=== PATIENT | female | born 1990 | race Caucasian/White ===

== ENCOUNTER 2017-12-11 23:30 | Emergency (ER) | END 2017-12-12 05:20 | disposition home or self-care (01) ==

== ENCOUNTER 2018-11-15 13:32 | Outpatient (CLI) | payer MEDICAID ==
[~2018-11-15] VITALS: Ht 161.3 cm; Wt 75.4 kg
[~2018-11-15 13:32] MED LIST: POLY17PO6 PO; SENN-36 PO
[2018-11-15 13:36] VITALS: Ht 161.3 cm; Wt 75.4 kg
[2018-11-15 13:37] VITALS: BP 109/69; PULSE 90; RESP 20
--- NOTE | 2018-11-15 15:44 | PN ---
Triage Information Date/Time Reason for visit: NST BPP for GDM Weeks of Gestation 38+ /Para 2/1 Diabetes: gestational Diabetes management: diet controlled Hypertention: none Objective Vital Signs Date Temp Pulse Resp B/P (MAP) Pulse Ox O2 O2 Flow FiO2 Time Delivery Rate 11/15/18 98.4 90 20 109/69 Room Air 13:37 (82) Heart Rate: 140's Contractions: None Disposition: Discharge Assessment/Plan BPP 08/18 Precautions discussed Questions answered Follow up with provider MANNIE MEDINA M.D. Nov 15, 2018 15:44
--- NOTE | 2018-11-15 16:12 | TRIAGE ---
OB Triage Datetime Report Generated by CPN: 11/15/2018 16:12 Datetime: 11/15/2018 14:00 Heart Rate FHR Baseline Rate: 135 Variability: Moderate 6-25 bpm Accelerations: 15X15 Decelerations: None Category: Category I Comments: reactive nst Datetime: 11/15/2018 13:51 Assessment Type: Triage Maternal Assessment Level of Consciousness: Fully Conscious DTR's/Clonus: DTRs 2+; No Clonus Headache: Denies Blurred Vision: No Respiratory Effort: Unlabored; Regular Rhythm; Equal Expansion Breath Sounds, Left: Clear and Equal Breath Sounds, Right: Clear and Equal Nausea/Vomiting: Denies RUQ Epigastric Pain: Denies Lower Extremities Edema: None Degree: None Upper Extremities Edema: None Degree: None Facial Edema: None Fall Risk Assessment History of Falling: (0) No Secondary Diagnosis: (0) No Ambulatory Aid: (0) Bedrest/Nurse Assist IV Therapy: (0) No Gait: (0) Normal/Bedrest/Immobile Mental Status: (0) Oriented to Own Ability Fall Score: 0 Fall Risk Score Definition: No Risk: No action required Datetime: 11/15/2018 13:49 Time of Arrival: 11/15/2018 13:14 EGA: 38.6 Arrived By: Ambulatory Arrived From: Office Chief Complaint: To ob triage from md office with referral form for nst, bpp, efm due to gdm Movement: Present Contractions: Denies/Absent Rupture of Membranes: Denies Vaginal Bleeding: None Vaginal Discharge: Denies Recent Sexual Intercouse: Denies Abdominal Trauma: Not Applicable Patient Complaints: None Time Provider Notified: 11/15/2018 15:37 Provider Notified: Initial Plan: nst, bpp, efw
== END 2018-11-15 16:00 | disposition home or self-care (01) ==
LOC: OBT 13:32 → L-D 13:33 → OBT 16:00
PROVIDERS: ATTEND Obstetrics & Gynecology
DX: O24.419 Gestational diabetes mellitus in pregnancy, unspecified control (principal); Z3A.38 38 weeks gestation of pregnancy
CPT/HCPCS: 76815; 76818; Z7500; G0463

== ENCOUNTER 2018-11-16 20:07 | Inpatient (IN) | payer MEDICAID ==
[~2018-11-16] VITALS: Ht 160 cm; Wt 76.3 kg
[2018-11-16 21:09] VITALS: Ht 160 cm; Wt 76.3 kg
[2018-11-16 21:11] VITALS: BP 112/80; PULSE 96; RESP 16
[2018-11-16] MEDS ORDERED: LACTATED RINGER'S 1,000 ML IV PRN (21:14)
[2018-11-16] MEDS ORDERED: OXYTOCIN 30 UNITS/LR 500 ML IV SCH ×2 (21:30)
[2018-11-16] MEDS ORDERED: LIDOCAINE 1% (MPF) 30 ML INJ INJ PRN (21:30)
[2018-11-16] MEDS ORDERED: BUTORPHANOL 2 MG INJ IV PRN (21:30)
[2018-11-16] MEDS ORDERED: OXYTOCIN 30 UNITS/LR 500 ML IV PRN (21:30)
[2018-11-16] MEDS ORDERED: MISOPROSTOL 200 MCG TAB PR PRN (21:30)
[2018-11-16] MEDS ORDERED: IBUPROFEN 600 MG TAB PO PRN (21:30)
[2018-11-16] MEDS ORDERED: METHYLERGONOVINE 0.2 MG INJ IM PRN (21:30)
[2018-11-16] MEDS ORDERED: CARBOPROST 250 MCG INJ IM PRN (21:30)
[2018-11-16] MEDS ORDERED: DEXTROSE 5%-LR 1,000 ML IV SCH (21:44)
[2018-11-16] MEDS: LACTATED RINGER'S 1,000 ML IV SCH (22:03)
[2018-11-16] MEDS: MISOPROSTOL 50 MCG CAPSULE PO SCH (22:07)
[2018-11-17] MEDS: MISOPROSTOL 50 MCG CAPSULE PO SCH (02:25)
[2018-11-17] MEDS: LACTATED RINGER'S 1,000 ML IV SCH (03:58)
[2018-11-17] MEDS ORDERED: FENTAnyl 2MCG/ML-ROPIV 0.2% 0 ML ONE (08:57)
[2018-11-17] MEDS ORDERED: MISOPROSTOL 200 MCG TAB ONE (09:14)
[2018-11-17 11:35] VITALS: BP 140/86; PULSE 63; RESP 17
[2018-11-17] MEDS ORDERED: DEXTROSE 5%-LR 1,000 ML IV SCH (12:44)
[2018-11-17] MEDS ORDERED: LACTATED RINGER'S 1,000 ML IV* SCH (12:44)
[2018-11-17] MEDS ORDERED: MAGNESIUM HYDROXIDE 30ML CUP PO PRN (13:00)
[2018-11-17] MEDS ORDERED: ACETAMINOPHEN 325 MG TAB PO PRN ×2 (13:00→13:30)
[2018-11-17] MEDS ORDERED: CARBOPROST 250 MCG INJ IM PRN (13:00)
[2018-11-17] MEDS ORDERED: DIPHENHYDRAMINE 50 MG INJ IV PRN (13:00)
[2018-11-17] MEDS ORDERED: MISOPROSTOL 200 MCG TAB PR PRN (13:00)
[2018-11-17] MEDS ORDERED: ZOLPIDEM 5 MG TAB PO PRN (13:00)
[2018-11-17] MEDS ORDERED: OXYCODONE/ASPIRIN (4.88/325) TAB PO PRN (13:00)
[2018-11-17] MEDS ORDERED: SENNA/DOCUSATE NA (8.6MG/50MG) TAB PO PRN (13:00)
[2018-11-17] MEDS ORDERED: ONDANSETRON 4 MG INJ IV PRN (13:00)
[2018-11-17] MEDS ORDERED: OXYTOCIN 30 UNITS/LR 500 ML IV PRN (13:00)
[2018-11-17] MEDS ORDERED: DIBUCAINE 1% 30 GM OINT TOP PRN (13:00)
[2018-11-17] MEDS ORDERED: LANOLIN HPA 1 PKT TOP PRN (13:00)
[2018-11-17] MEDS ORDERED: METHYLERGONOVINE 0.2 MG INJ IM PRN (13:00)
[2018-11-17] MEDS: BENZOCAINE 20% 56 ML SPRAY TOP PRN (14:39)
[2018-11-17] MEDS: WITCH HAZEL/GLYCERIN PAD PR PRN (14:39)
[2018-11-17 16:30] VITALS: BP 128/66; PULSE 71; RESP 17
[2018-11-17] MEDS: IBUPROFEN 600 MG TAB PO SCH ×2 (18:11→23:35)
--- NOTE | 2018-11-17 18:41 | HP ---
Date/Time of Note Date/Time of Note DATE: 11/17/18 TIME: 18:40 OB - History Hx of Present Free Text/Dictation Late entry note. Patient seen at 8:30 this morning 28 years old 2 para 1001 with gestational diabetes A1 and single intrauterine at 39-week and 1 day admitted for induction of labor. She states good movement. She denies nausea, vomiting, shortness of breath, chest pain, headache, visual changes, vaginal bleeding or LOF. Chief Complaint: Admission for induction of labor for gestational diabetes A1 Last Menstrual Period: Feb 16, 2018 Estimated Due Date: Nov 23, 2018 : 2 Para: 1 Spontaneous : 0 Therapeutic : 0 Care: Good Care Ultrasounds: Normal mid trimester US Obstetrical Complications: Gestational Diabetes Medical Complications: None Past Family/Social History * Past Medical, Surgical, Family and Obstetric Histories reviewed from chart. Blood Type: AB+ Rubella: immune RPR/VDRL: Negative GBS Status: Negative HBsAG: Negative OB Admission Exam Vital Signs Vital Signs Vital Signs Date Temp Pulse Resp B/P (MAP) Pulse Ox O2 O2 Flow FiO2 Time Delivery Rate 11/17/18 98.3 71 17 128/66 Room Air 16:30 (86) Physical Exam HEENT: WNL Heart: Rhythm Normal Lungs: Clear Abdomen: WNL Extremities: Normal Reflexes: Normal Cervical Dilatation: 1cm Effacement: 75% Station: -2 Membranes: Intact Heart Rate: 140's Accelerations: Accelerations Present Decelerations: No Decelerations Varibility: Moderate Contractions on Admission: >10 Minutes Apart Intensity: Mild Last 72 hourBlood Glucose Bedside Glucose - 72 Hours Test 11/16/18 21:26 11/17/18 02:12 11/17/18 06:19 Bedside Glucose 97 mg/dL (70-220) 87 mg/dL (70-220) 88 mg/dL (70-220) Last 72 hours Lab Results CBC & BMP 11/16/18 21:10 OB Assessment/Plan Other plan: 28 years old 001 at 39 weeks and 1 day admitted for induction of labor for gestational diabetes A1 and noncompliant for checking fasting blood sugar and 2- hour post peritoneal. - FHR: No sign of metabolic acidosis- Category I - Continuous EFM, toco - CBC, blood type and screen - Analgesia options with R/B/A discussed in detail with patient - Epidural per patient request - Please see the orders - AB+/Rubella: Immune - GBS: negative Admission, procedures, expectations, risks and possible complications have been discussed in detail with the patient. Risk of vaginal delivery including but not limited to bleeding, infection, cervical laceration, placental retention, injury to fetus, blood transfusion, blood transfusion related infection, risk of anesthesia, adhesion, cervical laceration, episiotomy/laceration, possible delivery with risk of bleeding, infection, injury to other organs (bowel, bladder, ureter, vessels, nerves), injury to fetus, blood transfusion, blood transfusion related infection, risk of anesthesia, scar and hernia formation, needs for future , removal of uterus or any other indicated surgery discussed with the patient. She expressed understanding and repeats the risks. All of her questions were answered. She signed the informed consent. PHYSICIAN'S VERIFICATION OF INFORMED CONSENT The patient was counseled regarding the procedure, its indications, risks, potential complications and alternatives and any questions were answered. Consent was obtained. PLANNED PROCEDURE/TREATMENT: Vaginal delivery, episiotomy, repair of laceration possible delivery HOWIE ESCALERA Nov 17, 2018 18:41
[2018-11-17 19:45] VITALS: BP 122/76; PULSE 84; RESP 18
--- NOTE | 2018-11-17 23:23 | LDN ---
Date/Time of Note Date/Time of Note DATE: 11/17/18 TIME: 23:19 Delivery Summary 28 years old with gestational diabetes at 39 weeks and 1 day delivered a viable male in cephalic presentation. Nose and mouth suctioned. Rest of body delivered. Baby given to the nurse. Placenta delivered spontaneously and intact after stopping pulsation. Patient tolerated procedure well. Time of delivery 09:08 Weight 3385 g - 7 pound and 7ounces Height 20.5 inches 9 at 1 minutes and 9 at 10 minutes EBL 200 mL Weeks of Gestation 39 weeks and 1 day Placenta Delivered: Spontaneously Meconium: none Anesthesia type: Epidural Estimated blood loss: 250 Sponge & Needle done & correct: Yes All needle counts correct: Yes Any foreign bodies felt in the: No Infant Delivery Information Sex Sex: male Apgars 1 Minute: 9 5 Minute: 9 10 Minute: 10 Suctioning Nose & mouth suctioned at yanna: Yes Umbilical Cord Umbilical cord with: 3 Vessels Cord Blood was obtained: Yes Mother & Baby Disposition Disposition Mom & Baby to Maternity; Good: Yes HOWIE ESCALERA Nov 17, 2018 23:23
[2018-11-18 04:00] VITALS: BP 118/72; PULSE 85; RESP 18
[2018-11-18] MEDS: IBUPROFEN 600 MG TAB PO SCH ×4 (05:34→23:58)
[2018-11-18 08:45] VITALS: BP 107/67; PULSE 88; RESP 17
--- NOTE | 2018-11-18 14:08 | PN ---
Date/Time of Note Date/Time of Note DATE: 11/18/18 TIME: 14:06 OB Subjective Subjective Subjective Reports decreased vaginal bleeding. Breast-feeding exclusively. Urinated. Denies any complaint. Ambulating. Baby at bedside. OB Objective Objective Objective General appearance: Alert and oriented x4 does not appear to be in any acute distress Abdomen: Soft, fundus palpable and firm and palpable below the umbilicus and nontender Extremities: No calf tenderness, no click no edema breast: No evidence of mastitis or fissure Laboratory Tests 11/18/18 07:19 OB Assessment/Plan Other Assessment: day #1 Status post doing well GDM. A1. Mild anemia Asymptomatic. Routine care Anticipate DC home tomorrow Discussed with the patient about glucose tolerance testing 6 weeks with her OB office after discharge from the hospital Encourage breast-feeding DEANDRE MICHELE MD Nov 18, 2018 14:08
[2018-11-18 16:00] VITALS: BP 110/70; PULSE 80; RESP 17
[2018-11-18 20:15] VITALS: BP 108/70; PULSE 82; RESP 18
--- NOTE | 2018-11-18 23:16 | NSTRPT ---
NST Information Datetime Report Generated by CPN: 11/18/2018 23:16 Datetime: 11/10/2018 13:58 NST Information EGA: 38.1 Time on Monitor: 11/10/2018 14:18 Time off Monitor: 11/10/2018 14:50 NST Duration (Min): 32 Test and Monitor Explained: Monitor Explained; Test Explained; Verbalized Understanding Pulse: 88 Resp: 18 SBP: 111 DBP: 72 Test Evaluation NST Interventions: None Patient States Movement: Present Contraction Frequency: none FHR Baseline : 135 Variability: Moderate 6-25bpm Accelerations: 15X15 Decelerations: None FHR Category: Category I NST Results: Reactive Comments: PT TO U/S rojas 18.6 cm cephalic FBS 82 Electronically Signed By E-Signature: with User ID: [id number] Datetime: 11/05/2018 13:20 NST Information EGA: 37.3 NST Duration (Min): 29 Datetime: 11/03/2018 13:56 NST Information EGA: 37.1 NST Duration (Min): 45 Datetime: 10/28/2018 13:15 NST Information EGA: 36.2 NST Duration (Min): 34 Datetime: 10/25/2018 14:33 NST Information EGA: 35.6 NST Duration (Min): 45
[2018-11-19 04:05] VITALS: BP 97/59; PULSE 71; RESP 18
[2018-11-19] MEDS: IBUPROFEN 600 MG TAB PO SCH ×3 (05:32→17:08)
[2018-11-19 07:50] VITALS: BP 111/74; PULSE 78; RESP 18
[2018-11-19] MEDS ORDERED: DIPHTH/TET/ACEL PERTUSS (ADULT) 0.5 ML VIAL IM* ONE (09:00)
[2018-11-19] MEDS ORDERED: MEASLES,MUMPS,RUBELLA VACCINE INJ SC* ONE (09:00)
[2018-11-19 15:30] VITALS: BP 131/81; PULSE 72; RESP 16
--- NOTE | 2018-11-19 17:18 | DS ---
Date/Time of Note Date/Time of Note DATE: 11/19/18 TIME: 17:17 Obstetrical Discharge Record Final Diagnosis Final Diagnosis: Term delivered Complications Augmentation: No Induction: No Rupture of Membranes: No Condition on Discharge Physical Assessment Last Vitals: vss afebrile Voiding: Yes Bowel Movement: Yes Breast: Soft, non-tender Fundus: Firm Abdomen and Incision: n/a Episiotomy: n/a Calf Tenderness: No Patient Condition: Stable LAINE CASTILLO MD Nov 19, 2018 17:18
--- NOTE | 2018-11-19 17:19 | PD.PPDC ---
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
[2018-11-19] MEDS: WITCH HAZEL/GLYCERIN PAD PR PRN (17:37)
[2018-11-19] MEDS: BENZOCAINE 20% 56 ML SPRAY TOP PRN (17:37)
== END 2018-11-19 18:10 | disposition home or self-care (01) | DRG 807 ==
LOC: L-D 20:07 → PP1 11-17 11:31 → EDSTATUS 11-22 16:45
PROVIDERS: ADMIT Obstetrics & Gynecology; ATTEND Obstetrics & Gynecology
PROC: 10E0XZZ Delivery of Products of Conception, External Approach (ICD-10-PCS; principal; 2018-11-17)
DX: O24.420 Gestational diabetes mellitus in childbirth, diet controlled (principal); Z37.0 Single live birth; Z3A.39 39 weeks gestation of pregnancy; O90.81 Anemia of the puerperium
CPT/HCPCS: 82962; 85025; 85610; 85730; 86592; 86850; 86900; 86901; J2210; J2590; J3010; J7120; J7121